=== PATIENT | female | born 1980 | race Caucasian/White ===

== ENCOUNTER 2017-05-29 20:27 | Inpatient (IN) | payer MEDICAID, OTHER ==
[~2017-05-29] VITALS: Ht 154.9 cm; Wt 55.8 kg
[2017-05-29 21:20] LABS: BASOPHILS # (AUTO) 0.04 K/uL (0.00-0.20); BASOPHILS % (AUTO) 0.6 % (0.0-2.0); EOSINOPHILS # (AUTO) 0.02 K/uL (0.00-0.70); EOSINOPHILS % (AUTO) 0.34 % (1.0-6.0); HEMOGLOBIN 12.6 g/dL (12.0-16.0); LYMPHOCYTES # (AUTO) 1.8 K/uL (1.0-4.8); LYMPHOCYTES % (AUTO) 28.1 % (22.0-44.0); MEAN CORPUSCULAR HEMOGLOBIN 28.2 pg (26.0-34.0); MEAN CORPUSCULAR VOLUME 83 fL (80-100); MONOCYTES # (AUTO) 0.3 K/uL (0.1-1.0); MONOCYTES % (AUTO) 5.4 % (2.0-9.0); NEUTROPHILS # (AUTO) 4.1 K/uL (1.8-7.7); NEUTROPHILS % (AUTO) 65.5 % (40.0-70.0); PLATELET COUNT (AUTO) 229 K/uL (150-450); RED BLOOD CELL COUNT(AUTO) 4.46 MIL/uL (4.00-5.20); RED CELL DISTRIBUTION WIDTH 14.6 % (11.5-14.5); WHITE BLOOD COUNT (AUTO) 6.2 K/uL (4.5-11.0)
[2017-05-29 21:30] LABS: ANION GAP 10 mmol/L (8-16); CARBON DIOXIDE 27 mmol/L (22-29); CHLORIDE 104 mmol/L (98-107); CREATININE 0.81 mg/dL (0.60-1.30); GLOMERULAR FILTR. RATE CALC > 60 mL/min (>60); SODIUM SERUM 141 mmol/L (136-145); UREA NITROGEN, BLOOD 10 mg/dL (7-18)
[2017-05-29 21:36] LABS: ALANINE AMINOTRANSFERASE 21 U/L (12-78); ASPARTATE AMINOTRANSFERASE 18 U/L (15-37); BILIRUBIN,TOTAL 0.3 mg/dL (0.1-1.0); TOTAL PROTEIN, SERUM 7.5 g/dL (6.4-8.2)
[2017-05-29] MEDS ORDERED: HALOPERIDOL 5 MG TABLET PO PRN (21:45)
[2017-05-29] MEDS ORDERED: ZOLPIDEM TARTRATE 10 MG TABLET PO PRN (21:45)
[2017-05-29] MEDS ORDERED: LORazepam 2 MG TABLET PO PRN (21:45)
[2017-05-30 01:54] VITALS: BP 137/80
[2017-05-30 03:14] VITALS: BP 137/90
[2017-05-30 08:23] VITALS: BP 122/76
[2017-05-30 16:05] VITALS: BP 130/88
[2017-05-31 06:51] VITALS: BP 120/77
[2017-05-31 08:13] VITALS: BP 130/88
[2017-05-31 09:05] LABS: CHOL/HDL RATIO 2.1 (3.9-5.7)
[2017-05-31 09:26] LABS: THYROID STIMULATING HORMONE 1.96 uIU/mL (0.36-3.74)
[2017-05-31 16:23] VITALS: BP 121/87
[2017-06-01 07:09] VITALS: BP 123/73
[2017-06-01 08:10] VITALS: BP 136/76
[2017-06-01 16:09] VITALS: BP 124/60
[2017-06-02 07:05] VITALS: BP 135/70
[2017-06-02 08:26] VITALS: BP 130/85
[2017-06-02 16:08] VITALS: BP 134/69
== END 2017-06-02 17:45 | disposition home or self-care (01) | DRG 751 ==
LOC: EMS 20:35 → B3A 05-30 00:09
PROVIDERS: ADMIT Psychiatry & Neurology Psychiatry; ATTEND Psychiatry & Neurology Psychiatry
DX: F33.2 Major depressive disorder, recurrent severe without psychotic features (principal); R45.851 Suicidal ideations; Z82.0 Family history of epilepsy and other diseases of the nervous system; Z83.2 Family history of diseases of the blood and blood-forming organs and certain disorders involving the immune mechanism; F10.10 Alcohol abuse, uncomplicated; F15.90 Other stimulant use, unspecified, uncomplicated; F19.10 Other psychoactive substance abuse, uncomplicated; F12.90 Cannabis use, unspecified, uncomplicated; R45.84 Anhedonia; Z63.9 Problem related to primary support group, unspecified; Z71.41 Alcohol abuse counseling and surveillance of alcoholic; Z71.51 Drug abuse counseling and surveillance of drug abuser
CPT/HCPCS: 84436; 84439; 84443; 99285; G0480